=== PATIENT | male | born 1930 | race African-American/Black ===

== ENCOUNTER 2016-07-11 12:05 | Day surgery (SDC) | payer MEDICARE ==
--- NOTE | ~2016-07-11 | EGD ---
EGD REPORT [facility] [address] [address] NAME: ALBA FLORES : 30 STATUS : REG [facility]#: [id number] AGE: 85 ADM/REG DATE : 07/11/16 MR#: [id number] REPORT SERV DATE: 07/11/16 DICTATED BY: KAIN TAYLOR DATE: 07/11/16 REPORT STATUS : Draft [facility]: [facility] DATE: 07/11/16 Endoscopy Center Patient Name: Alba Flores Date of : 1930 Attending MD: KAIN TAYLOR MD Procedure Date No Time: 07/11/2016 Procedure: Colonoscopy Indications: Hematochezia, Melena Referring MD: TRACE RUSS Medicines: Monitored Anesthesia Care Complications: No immediate complications. Procedure: Pre-Anesthesia Assessment: - ASA Grade Assessment: III - A patient with severe systemic disease. After I obtained informed consent, the scope was passed under direct vision. Throughout the procedure, the patient's blood pressure, pulse, and oxygen saturations were monitored continuously. The CF [id number] was introduced through the anus and advanced to the ileocolonic anastomosis. The colonoscopy was performed without difficulty. The patient tolerated the procedure well. The quality of the bowel preparation was good. Findings: The digital rectal exam was normal. Pertinent negatives include no palpable rectal lesions. The vivian-terminal ileum appeared normal. Hemorrhoids were found during retroflexion and were moderate. Impression: - The examined portion of the ileum was normal. - Hemorrhoids. Recommendation: - Patient has a contact number available for emergencies. The signs and symptoms of potential delayed complications were discussed with the patient. Return to normal activities tomorrow. Written discharge instructions were provided to the patient. - Regular diet. - Continue present medications. - Resume Pradaxa (dabigatran) at prior dose today. Refer to managing physician for further adjustment of therapy. - Return to GI clinic PRN. Procedure Code(s): --- Professional --- 13244, Colonoscopy, flexible, proximal to splenic EGD REPORT [facility] [address] [facility]. [address] NAME: ALBA FLORES : [birth year] STATUS : REG [facility] [place] PAT#: [id number] AGE: 85 ADM/REG DATE : 07/11/16 MR#: [id number] REPORT SERV DATE: 07/11/16 DICTATED BY: KAIN TAYLOR DATE: 07/11/16 REPORT STATUS : Draft TRANSCRIBED BY: [employer] DATE: 07/11/16 flexure; diagnostic, with or without collection of specimen(s) by brushing or washing, with or without colon decompression (separate procedure) Diagnosis Code(s): --- Professional --- K64.9, Unspecified hemorrhoids K92.1, Melena CPT copyright 2013 [employer]. All rights reserved. The codes documented in this report are preliminary and upon chief payroll clerk review may be revised to meet current compliance requirements. KAIN TAYLOR MD 07/11/2016 2:56 PM This report has been signed electronically. Number of Addenda: 0 Note Initiated On: 07/11/2016 2:18 PM Scope Withdrawal Time 0 hours 6 minutes 28 seconds [address] [facility] [place] [address]
--- NOTE | ~2016-07-11 | EGD ---
EGD REPORT [facility] [address] [address] NAME: ALBA FLORES : [birth year] STATUS : REG [facility] [place] PAT#: [id number] AGE: 85 ADM/REG DATE : 07/11/16 MR#: [id number] REPORT SERV DATE: 07/11/16 DICTATED BY: KAIN TAYLOR DATE: 07/11/16 REPORT STATUS : Draft [facility] DATE: 07/11/16 Endoscopy Center Patient Name: Alba Flores Date of : 1930 Attending MD: KAIN TAYLOR MD Procedure Date No Time: 07/11/2016 Procedure: Upper GI endoscopy Indications: Acute post hemorrhagic anemia, Hematochezia, Melena Referring MD: TRACE RUSS Medicines: Monitored Anesthesia Care Complications: No immediate complications. Procedure: Pre-Anesthesia Assessment: - ASA Grade Assessment: III - A patient with severe systemic disease. After obtaining informed consent, the endoscope was passed under direct vision. Throughout the procedure, the patient's blood pressure, pulse, and oxygen saturations were monitored continuously. The GIF [id number] was introduced through the mouth, and advanced to the second part of duodenum. The upper GI endoscopy was accomplished without difficulty. The patient tolerated the procedure well. Findings: A non-obstructing Schatzki ring (acquired) was found in the lower third of the esophagus. A small hiatus hernia was present. The duodenal bulb and 2nd part of the duodenum were normal. The cardia and gastric fundus were normal on retroflexion. Impression: - Non-obstructing Schatzki ring. - Hiatus hernia. - Normal duodenal bulb and 2nd part of the duodenum. Recommendation: - Perform a colonoscopy today. Procedure Code(s): --- Professional --- 76371, Esophagogastroduodenoscopy, flexible, transoral; diagnostic, including collection of specimen(s) by brushing or washing, when performed (separate procedure) Diagnosis Code(s): --- Professional --- K22.2, Esophageal obstruction K44.9, Diaphragmatic hernia without obstruction or gangrene EGD REPORT [address] [place]. [address] NAME: ALBA FLORES : [birth year] STATUS : REG [facility] [place] PAT#: [id number] AGE: 85 ADM/REG DATE : 07/11/16 MR#: [id number] REPORT SERV DATE: 07/11/16 DICTATED BY: KAIN TAYLOR DATE: 07/11/16 REPORT STATUS : Draft TRANSCRIBED BY: [employer] DATE: 07/11/16 D62, Acute posthemorrhagic anemia K92.1, Melena CPT copyright 2013 [employer]. All rights reserved. The codes documented in this report are preliminary and upon administrative office assistant review may be revised to meet current compliance requirements. KAIN TAYLOR MD 07/11/2016 2:40 PM This report has been signed electronically. Number of Addenda: 0 Note Initiated On: 07/11/2016 2:28 PM Scope Withdrawal Time 0 hours 0 minutes 0 seconds
[~2016-07-11 12:05] MED LIST: APRES25 PO; BENTYL10 PO; CAT1 PO; CLONIDINE HCL PO; COLCRYS0.6 MG PO; COUMADIN7.5 MG PO; DIOVAN320 MG PO; GLUCPH PO; IRON PO; KDUR20 PO; KLOR-CON M2020 MEQ PO; L20 PO; LEVAQ750PM IV; MATZIM LA PO; PRAVACHOL40 MG PO; PROAIR HFA INH; TIAZA5 PO; Z100 PO
[2016-07-11 12:44] LABS: PROTIME (NOT ORD) 13.4 SEC (12.0-14.5)
== END 2016-07-11 23:59 | disposition home or self-care (01) ==
LOC: DMU 12:05
PROVIDERS: Internal Medicine Gastroenterology
PROC: 0DJ08ZZ Inspection of Upper Intestinal Tract, Via Natural or Artificial Opening Endoscopic (ICD-10-PCS; principal; 2016-07-11 14:36)
PROC: 0DJD8ZZ Inspection of Lower Intestinal Tract, Via Natural or Artificial Opening Endoscopic (ICD-10-PCS; 2016-07-11 14:36)
DX: K44.9 Diaphragmatic hernia without obstruction or gangrene (principal); K22.2 Esophageal obstruction; D62 Acute posthemorrhagic anemia; K64.9 Unspecified hemorrhoids; I10 Essential (primary) hypertension; Z79.899 Other long term (current) drug therapy
CPT/HCPCS: 36415; 82962; 85610